=== PATIENT | male | born 1945 | race Caucasian/White ===

== ENCOUNTER 2023-09-20 13:11 | Outpatient (CLI) | payer MEDICARE, SELFPAY | END 2023-09-20 13:12 | disposition home or self-care (01) | PROVIDERS: PCP Family Medicine; Visit Provider Physician Assistant | DX: R19.7 Diarrhea, unspecified (principal) | CPT/HCPCS: 80076 ==

== ENCOUNTER 2023-09-21 08:00 | Outpatient (CLI) | payer MEDICARE, SELFPAY | END 2023-09-21 08:01 | disposition home or self-care (01) | LOC: NFLDREF 09-24 01:20 | PROVIDERS: PCP Family Medicine; Referring Provider Family Medicine; Visit Provider Physician Assistant | DX: R10.9 Unspecified abdominal pain (principal); R19.5 Other fecal abnormalities | CPT/HCPCS: 87045; 87046; 87427 ==